=== PATIENT | female | born 1995 ===

== ENCOUNTER 2020-10-27 03:39 | Emergency (ER) | payer SELFPAY ==
[2020-10-27 03:56] VITALS: BP 115/79
[2020-10-27 04:43] LABS: Basophils % (Auto) 0.2 % (0.0-1.8); Eosinophils # (Auto) 0.2 K/mm3 (0.0-0.4); Eosinophils % (Auto) 2.6 % (0.0-4.3); Hematocrit 38.6 % (30.3-42.9); Hemoglobin 12.8 gm/dl (10.1-14.3); Lymphocytes % (Auto) 31.4 % (13.4-35.0); Mean Corpuscular HGB Conc 33 % (30-34); Mean Corpuscular Volume 86 fl (79-97); Monocytes # (Auto) 0.6 K/mm3 (0.0-0.8); Monocytes % (Auto) 9.9 % (0.0-7.3); Platelet Count 197 K/mm3 (140-440); Red Blood Count 4.48 M/mm3 (3.65-5.03); Red Cell Distribution Width 13.3 % (13.2-15.2)
--- NOTE | 2020-10-27 04:48 | Emergency Department Report ---
Blank Doc - Documentation Documentation: 25-year-old female postmenopausal complaining of a 2-week history of extreme n ausea progressively worsening over the last few days associated with substernal chest discomfort and shortness of breath of unknown etiology reports no possibility of This initial assessment/diagnostic orders/clinical plan/treatment(s) is/are subject to change based on patients health status, clinical progression and re- assessment by fellow clinical providers in the ED. Further treatment and workup at subsequent clinical providers discretion. Patient/guardian urged not to elope from the ED as their condition may be serious if not clinically assessed and managed. Initial orders include:
[2020-10-27 04:53] LABS: Alanine Aminotransferase 6 units/L (7-56); Albumin 4.5 g/dL (3.9-5); Blood Urea Nitrogen 6 mg/dL (7-17); Calcium 8.5 mg/dL (8.4-10.2); Hemolysis Index 4
[2020-10-27 05:01] LABS: BUN/Creatinine Ratio 10
--- NOTE | 2020-10-27 06:20 | Emergency Department Report ---
ED Chest Pain HPI - General Chief Complaint: Nausea/Vomiting/Diarrhea Stated Complaint: NASSEA,HEADACHE,SOB Time Seen by Provider: 10/27/20 06:07 Source: patient Mode of arrival: Ambulatory Limitations: No Limitations - History of Present Illness Initial Comments: This is a 25-year-old female with no pre-existing past medical conditions. She states that she has been visiting and she has had symptoms for 1 week without change. The symptoms include intermittent nausea without vomiting. No cough no shortness of breath except for periods where she feels her heart racing and then she feels short of breath. She does not describe chest pain. He states she "puts food in her mouth" but her "appetite is poor". He does not describe fever or chills. She states that she has headaches and bilateral otalgia. MD Complaint: other -: Gradual, week(s) Onset: during rest Pain Location: other (Heart racing no pain) Pain Radiation: none Improves With: nothing Worsens With: other (Seems to be associated with anxiety) Context: other (Visiting from out of town) - Related Data Previous Rx's Medication Instructions Recorded Last Taken Type Butalb/Acetaminophen/Caffeine 1 cap PO Q6HR PRN #10 cap 10/27/20 Unknown Rx [Fioricet 50-300-40 mg CAP] Ondansetron [Zofran Odt] 4 mg PO Q8HR #7 tab.rapdis 10/27/20 Unknown Rx Allergies Allergy/AdvReac Type Severity Reaction Status Date / Time No Known Allergies Allergy Unverified 10/27/20 04:00 Heart Score - HEART Score History: Slightly suspicious EKG: Non-specific Age: < 45 Risk factors: No known risk factors Troponin: < normal limit (Troponin not indicated) HEART Score: 1 ED Review of Systems ROS: Stated complaint: NASSEA,HEADACHE,SOB Other details as noted in HPI Constitutional: denies: chills, fever Eyes: denies: eye pain, eye discharge, vision change ENT: ear pain. denies: throat pain Respiratory: shortness of breath (Episodes of heart racing and shortness of breath). denies: cough, wheezing Cardiovascular: denies: chest pain, palpitations Endocrine: no symptoms reported Gastrointestinal: nausea. denies: abdominal pain, diarrhea Genitourinary: denies: urgency, dysuria, discharge Musculoskeletal: denies: back pain, joint swelling, arthralgia Skin: denies: rash, lesions Neurological: headache. denies: weakness, paresthesias Psychiatric: anxiety. denies: depression Hematological/Lymphatic: denies: easy bleeding, easy bruising ED Past Medical Hx - Past Medical History Previous Medical History?: No - Surgical History Past Surgical History?: No - Social History Smoking Status: Never Smoker Substance Use Type: None - Medications Home Medications: Home Medications Medication Instructions Recorded Confirmed Last Taken Type Butalb/Acetaminophen/Caffeine 1 cap PO Q6HR PRN #10 cap 10/27/20 Unknown Rx [Fioricet 50-300-40 mg CAP] Ondansetron [Zofran Odt] 4 mg PO Q8HR #7 tab.rapdis 10/27/20 Unknown Rx ED Physical Exam - General Limitations: No Limitations General appearance: alert, in no apparent distress - Head Head exam: Present: atraumatic, normocephalic - Eye Eye exam: Present: normal appearance. Absent: scleral icterus - ENT ENT exam: Present: mucous membranes moist, TM's normal bilaterally - Neck Neck exam: Present: normal inspection. Absent: tenderness, meningismus - Respiratory Respiratory exam: Present: normal lung sounds bilaterally. Absent: respiratory distress - Cardiovascular Cardiovascular Exam: Present: regular rate, normal rhythm. Absent: systolic m urmur, diastolic murmur, rubs, gallop - GI/Abdominal GI/Abdominal exam: Present: soft, normal bowel sounds. Absent: distended, tenderness, guarding, rebound - Extremities Exam Extremities exam: Present: normal inspection. Absent: calf tenderness - Back Exam Back exam: Present: normal inspection - Neurological Exam Neurological exam: Present: alert, oriented X3, CN II-XII intact, normal gait. Absent: motor sensory deficit - Psychiatric Psychiatric exam: Present: normal affect, normal mood - Skin Skin exam: Present: warm, dry, intact, normal color. Absent: rash ED Course Vital Signs 10/27/20 10/27/20 03:52 06:37 Temperature 97.9 F Pulse Rate 97 H 64 Respiratory 18 Rate Blood Pressure 115/79 O2 Sat by Pulse 92 100 Oximetry - Reevaluation(s) Reevaluation #1: Pulse oximetry was rechecked. Is 100% on room air. 10/27/20 07:00 SAMANTHA score - Samantha Score Age > 65: (0) No Aspirin use within the Past 7 Days: (0) No 3 or more CAD Risk Factors: (0) No 2 or more Angina events in past 24 hrs: (0) No Known CAD with more than 50% Stenosis: (0) No Elevated Cardiac Markers: (0) No ST Deviation Greater than 0.5mm: (0) No SAMANTHA Score: 0 ED Medical Decision Making - Lab Data Result diagrams: 10/27/20 04:11 10/27/20 04:11 Laboratory Results - last 24 hr 10/27/20 10/27/20 10/27/20 04:11 04:11 04:11 WBC 6.3 RBC 4.48 Hgb 12.8 Hct 38.6 MCV 86 MCH 29 MCHC 33 RDW 13.3 Plt Count 197 Lymph % (Auto) 31.4 Hopkins % (Auto) 9.9 H Eos % (Auto) 2.6 Baso % (Auto) 0.2 Lymph # (Auto) 2.0 Hopkins # (Auto) 0.6 Eos # (Auto) 0.2 Baso # (Auto) 0.0 Seg Neutrophils % 55.9 Seg Neutrophils # 3.5 Sodium 138 Potassium 3.4 L Chloride 104.4 Carbon Dioxide 24 Anion Gap 13 BUN 6 L Creatinine 0.6 Estimated GFR > 60 BUN/Creatinine Ratio 10 Glucose 103 H Calcium 8.5 Total Bilirubin 0.20 AST 17 ALT 6 L Alkaline Phosphatase 51 Total Protein 7.2 Albumin 4.5 Albumin/Globulin Ratio 1.7 HCG, Qual Negative - EKG Data -: EKG Interpreted by [place] EKG shows normal: sinus rhythm, axis, intervals, QRS complexes, ST-T waves Rate: normal - EKG Data Interpretation: nonspecific ST-T wave fariba - Radiology Data Radiology results: image reviewed (Chest x-ray no acute process) Critical care attestation.: If time is entered above; I have spent that time in minutes in the direct care of this critically ill patient, excluding procedure time. ED Disposition Clinical Impression: Viral illness, Hypokalemia Cephalalgia Qualifiers: Headache type: unspecified Headache chronicity pattern: chronic headache Intractability: not intractable Qualified Code(s): R51.9 - Headache, unspecified; G89.29 - Other chronic pain Anxiety disorder Qualifiers: Anxiety disorder type: unspecified anxiety disorder Qualified Code(s): F41.9 - Anxiety disorder, unspecified Disposition: DC-01 TO HOME OR SELFCARE Is pt being admited?: No Does the pt Need Aspirin: No Condition: Stable Instructions: Viral Illness, Adult, General Headache Without Cause, Managing Anxiety, Adult, Hypokalemia Additional Instructions: Follow-up with primary care such as [facility] Prescriptions: Butalb/Acetaminophen/Caffeine [Fioricet 50-300-40 mg CAP] 1 cap PO Q6HR PRN #10 cap PRN Reason: Headache Ondansetron [Zofran Odt] 4 mg PO Q8HR #7 tab.rapdis Referrals: PRIMARY CARE,MD [Primary Care Provider] - 3-5 Days [facility] [Provider Group] - 3-5 Days Time of Disposition: 07:26
--- NOTE | 2020-10-27 08:04 | XRay Report ---
CHEST 2 VIEWS INDICATION: Shortness of breath. COMPARISON: None. FINDINGS: Support devices: None. Heart: Within normal limits. Lungs/Pleura: No acute air space or interstitial disease. No significant pleural effusion. IMPRESSION: No acute findings. Signer Name: Kurt Berger MD Signed: 10/27/2020 8:00 AM Workstation Name: [email or web address]
== END 2020-10-27 07:35 | disposition home or self-care (01) ==
LOC: ED 03:39
DX: F41.9 Anxiety disorder, unspecified (principal); B34.9 Viral infection, unspecified; R51.9 Headache, unspecified; E87.6 Hypokalemia; Z79.899 Other long term (current) drug therapy
CPT/HCPCS: 36415; 71046; 80053; 84703; 85025; 93005